=== PATIENT | male | born 1955 | race Caucasian/White ===

== ENCOUNTER 2017-07-13 13:16 | Observation (INO) | payer OTHER ==
[~2017-07-13] VITALS: Ht 182.9 cm; Wt 161.1 kg
[~2017-07-13 13:16] MED LIST: AMLODIPINE BES10 MG PO; CELEXA20 MG PO; COZAAR100 MG PO; FUROSEMIDE40 MG PO; GLIPIZIDE5 MG PO; GOOD SENSE ASPI81 M3 PO; KLOR-CON M1010 MEQ PO; METFORMIN HCL850 MG PO; OMEPRAZOLE40 M1 PO; OXYCONTIN60 MG PO; PRA40 PO; PROMETHAZINE12.5 M4 PO; RITALIN-SR20 MG PO; SEROQUEL50 M1 PO; TAMSULOSIN HYD0.4 M1 PO
--- NOTE | 2017-07-13 13:55 | NUR ---
PT AWAITING BED AVAILABILITY WITH FAMILY MEMBER IN ER [place], EKG COMPLETED IN TRIAGE, IN NO ACUTE DISTRESS
--- NOTE | 2017-07-13 15:19 | NUR ---
PT C/O HALLUCINATIONS ACCOMPANIED BY CHEST PAIN. PT'S STS HE'S BEEN "ACTING FUNNY, TALKING TO HIMSELF AND LOSING HIS GAZE OUT OF NO WHERE". PT SPEAKING IN CLEAR FULL SENTENCES. CM ATTACHED. O2 SATS 91% ROOM AIR. DR. FERNANDEZ AT BEDSIDE FOR MSE. ROOM AIR BLOOD GAS ORDERED PER DR. FERNANDEZ PRIOR TO ADMINISTERING O2 VIA NC. LUNG GRECO CLEAR UPON AUSCULTATION. CALL LIGHT W/IN REACH. COMFORT MEASURES IMPLEMENTED. WILL CONTINUE TO MONITOR.
--- NOTE | 2017-07-13 15:40 | NUR ---
PT ATTEMPTING TO URINATE IN URINAL FOR SAMPLE. PT REPORTS DIFFICULTY AT THIS MOMENT.
[2017-07-13 15:43] LABS: CALCIUM 9.1 mg/dL (8.5-10.1); CARBON DIOXIDE 28.8 mmol/L (21-32); CHLORIDE SERUM 100 mmol/L (98-107); CREATININE SERUM 1.3 mg/dL (0.7-1.3); GFR1 59 mL/min; GLUCOSE SERUM 122 mg/dL (74-106); POTASSIUM SERUM 5.1 mmol/L (3.5-5.1); SODIUM SERUM 136 mmol/L (136-145)
[2017-07-13 15:46] LABS: BASOPHIL % 0.4 % (0-2); PLATELET COUNT 283 x10^3mcL (130-400)
[2017-07-13 15:47] LABS: RED CELL DISTRIBUTION WIDTH 17.7 % (11.5-14.5)
[2017-07-13 15:55] LABS: ALBUMIN 3.5 g/dL (3.4-5.0); ALKALINE PHOSPHATASE 132 U/L (46-116); ALT/SGPT 35 U/L (16-63); AST/SGOT 22 U/L (15-37); BILIRUBIN TOTAL 0.27 mg/dL (0.20-1.00); CHOLESTEROL 166 mg/dL (<200); LIPASE 145 IU/L (73-393); MAGNESIUM 1.9 mg/dL (1.8-2.4); T4(THYROXINE) 5.3 ug/dL (4.7-13.3)
[2017-07-13 15:58] LABS: AMYLASE 19 U/L (25-115); HDL CHOLESTEROL 30 mg/dL (40-60)
[2017-07-13 16:24] LABS: microscopic required? NO
--- NOTE | 2017-07-13 16:28 | NUR ---
ATTEMPTED 2 IV SITES UNSUCCESSFUL RN VITO WILL ATTEMPT
[2017-07-13 16:31] LABS: UA SPECIFIC GRAVITY 1.025 (1.005-1.035); urine erythrocyte NEGATIVE (NEGATIVE)
[2017-07-13 16:38] LABS: AMPHETAMINE QUAL UR NONE DETECTED (NEG <=1000)
--- NOTE | 2017-07-13 17:37 | NUR ---
REPORT GIVEN TO GINGER NEWMAN FOR CONTINUATION OF CARE PRIMARY RN.
[2017-07-13 17:57] VITALS: BP 136/60
[2017-07-13 18:08] VITALS: BP 138/60
--- NOTE | 2017-07-13 18:24 | NUR ---
RECEIVED PATIENT FROM ED VIA GUERNEY, PATIENT ALERT AND ORIENTED SPOUSE AT BEDSIDE, SPOUSE STATES HAS MOMENTS OF HALLUCINATIONS, TELE # 27 SR, IV ACCESS TO RAC WNL, C/O PAIN TO NECK AND WILL MEDICATE ORDERED, ORIENTED PATIENT TO ROOM AND SURROUNDINGS, BED IN LOW POSITION, BED RAILS UP X 2, CALL LIGHT WITHIN REACH, WILL ENDORSE CARE TO PRIMARY NURSE FARRUKH MILES
[2017-07-13] MEDS ORDERED: OXYC PO (21:01)
[2017-07-13] MEDS ORDERED: COREG25 M1 PO (21:08)
[2017-07-13] MEDS ORDERED: LEVOTHYROXIN0.075 M2 PO (21:10)
[2017-07-13] MEDS ORDERED: CARAFATE1 GM PO (21:11)
[2017-07-13] MEDS ORDERED: ALBUTEROL SULFAT0.51 IH (21:12)
[2017-07-13 21:51] VITALS: BP 129/51
--- NOTE | 2017-07-13 22:45 | NUR ---
Awake and verbally responsive. No resp.distress noted on room air. Ambulating in the room. All due meds given and taken well. Noted abd'l.wound with erythema. No drainage noted. Will cont.to monitor. Call light within reach.
[2017-07-13] MEDS ORDERED: DIOVAN HCT1 TA3 PO (22:58)
[2017-07-14 01:29] VITALS: BP 128/52
[2017-07-14 03:58] LABS: PLATELET COUNT 221 x10^3mcL (130-400)
--- NOTE | 2017-07-14 04:08 | NUR ---
Afebrile. No significant change in condition noted. No hallucination observed. Pain controlled. In no apparent distress.
[2017-07-14 04:11] LABS: BASOPHIL % 2.1 % (0-2); RED CELL DISTRIBUTION WIDTH 17.8 % (11.5-14.5)
[2017-07-14 04:19] LABS: CALCIUM 8.9 mg/dL (8.5-10.1); CARBON DIOXIDE 30.1 mmol/L (21-32); CHLORIDE SERUM 102 mmol/L (98-107); CHOLESTEROL 161 mg/dL (<200); CHOLESTEROL/HDL RATIO 5.2; CREATININE SERUM 1.1 mg/dL (0.7-1.3); GFR1 > 60 mL/min; GLUCOSE SERUM 88 mg/dL (74-106); HDL CHOLESTEROL 31 mg/dL (40-60); MAGNESIUM 1.6 mg/dL (1.8-2.4); PHOSPHOROUS 3.2 mg/dL (2.5-4.9); POTASSIUM SERUM 4.2 mmol/L (3.5-5.1); SODIUM SERUM 140 mmol/L (136-145); TRIGLYCERIDES 110 mg/dL (<150)
[2017-07-14 06:18] VITALS: BP 105/57
--- NOTE | 2017-07-14 08:00 | NUR ---
AWAKE AND ALERT TO PERSON, , PLACE AND TIME. SPEECH CLEAR. DENIES HALLUCINATONS. TEMP 98.8. TELE #27 SINUS RHYTHM RATE 79. DENIES CHEST DISCOMFORT. RESP 18 EVEN. BREATH SOUNDS CLEAR. PULSE OX 96% ON RA. ABD ROUNDED PT OBESE. LBM=8-15-17. SCABBED AREA TO ABD JUST ABOVE NAVAL. STATES "HAS HAD A WOUND THERE FOR LAST 30 YEARS. THE SCAB COMES OFF AND IT BLEEDS SOMETIMES." CANDY. VOIDING QS. NO PITTING EDEMA. PULSES PRESENT. SCD IN PLACE. IV PATENT LEFT WRIST INFUSING NORMAL SALINE 100CC/HR. SIDE RAILS UP X2. REPORTS "NECK AND SHOULDE PAIN 05/08. MY OXYCONTIN SCHEDULE IS 60MG AM AND NIGHT AND AT NOON 40MG. REFUSES RITALIN "I AM NOT MOVING AROUND LIKE NORMAL." CALL LIGHT IN REACH.
--- NOTE | 2017-07-14 08:55 | NUR ---
DR HOYOS AND MEDICAL TEAM IN ON ROUNDS. CHARGE AND PRIMARY NURSE PRESENT. REVIEWED PT STATUS, PAIN MANAGEMENT SCHEDULE. PT STATUS CHANGED TO OBSERVATION. FOR POSSIBLE DISCHARGE HOME THIS AFTERNOON. PT VERBALIZED UNDERSTANDING.
[2017-07-14 10:16] VITALS: BP 127/74
--- NOTE | 2017-07-14 11:45 | NUR ---
CRC=[id number]. NO RISS COVERAGE NEEDED. ORAL OXYCONTIN 40MG PO GIVEN ORDERED. HERE THIS AM.
--- NOTE | 2017-07-14 14:43 | NUR ---
ECHO NOT DONE. PT REFUSED, STATES HE SEES DR LOZANO AND HAS REGULAR ECHOS DONE AT HIS OFFICE. RESIDENT AND NURSE NOTIFIED.
[2017-07-14 14:44] VITALS: BP 141/44
[2017-07-14 15:27] VITALS: BP 127/44
--- NOTE | 2017-07-14 15:30 | NUR ---
DISCHARGE INFORMATION REVIEWED WITH PT AND . MEDS REVIEWED. VERBALIZED UNDERSTANDING. DR SOLIS SET UP FOR HOSPICE NURSE TO CALL PT AT HOME TOMORRORW. PT STATES "PREFERS NOT TO HAVE NURSE COME EVERYDAY, THEY WILL CALL TOMORROW." TELE REMOVED AND RETURNED TO TELE UNIT. AWAITING DR LOVELL TO SEE PT.
[2017-07-14] MEDS ORDERED: GLIPIZIDE2.5 M1 (15:39)
--- NOTE | 2017-07-14 17:00 | NUR ---
SEEN BY DR LOVELL. IV REMOVED CATH TIP INTACT. PT DC TO DC NURSES OFFICE FOR EXIT INTERVIEW. PT UPSET HAD TO WAIT FOR NURSE TO REMOVE SALINE LOCK. DTR WITH PT.
== END 2017-07-14 16:57 | disposition hospice, home (50) | DRG 896 ==
LOC: ED 13:16 → DU 17:05
PROVIDERS: Emergency Medicine; ADMIT Family Medicine
DX: F11.251 Opioid dependence with opioid-induced psychotic disorder with hallucinations (principal); G92 Toxic encephalopathy; N17.0 Acute kidney failure with tubular necrosis; D68.69 Other thrombophilia; Z68.42 Body mass index [BMI] 45.0-49.9, adult; T40.2X5A Adverse effect of other opioids, initial encounter; G89.4 Chronic pain syndrome; E11.65 Type 2 diabetes mellitus with hyperglycemia; E11.59 Type 2 diabetes mellitus with other circulatory complications; M94.0 Chondrocostal junction syndrome [Tietze]; J44.9 Chronic obstructive pulmonary disease, unspecified; D53.9 Nutritional anemia, unspecified; E78.5 Hyperlipidemia, unspecified; E03.9 Hypothyroidism, unspecified; F90.9 Attention-deficit hyperactivity disorder, unspecified type; K21.9 Gastro-esophageal reflux disease without esophagitis; N40.0 Benign prostatic hyperplasia without lower urinary tract symptoms; E66.01 Morbid (severe) obesity due to excess calories; Z87.891 Personal history of nicotine dependence; Z98.1 Arthrodesis status; Z79.82 Long term (current) use of aspirin; Z79.84 Long term (current) use of oral hypoglycemic drugs; Y92.009 Unspecified place in unspecified non-institutional (private) residence as the place of occurrence of the external cause
CPT/HCPCS: 36600; 83880; G0378; G0480; J3475; J7030; Q0092

== ENCOUNTER 2020-01-19 13:28 | Observation (INO) | payer OTHER ==
[~2020-01-19] VITALS: Ht 182.9 cm; Wt 162.6 kg
[~2020-01-19 13:28] MED LIST changes: +ALBUTEROL SULFAT0.51 IH; +CARAFATE1 GM PO; +COREG25 M1 PO; +DIOVAN HCT1 TA3 PO; +GLIPIZIDE2.5 M1; +LEVOTHYROXIN0.075 M2 PO; +OXYC PO
[2020-01-19 13:34] VITALS: Ht 182.9 cm; Wt 162.6 kg
[2020-01-19 14:19] LABS: PLATELET COUNT 229 x10^3mcL (130-400)
[2020-01-19 14:20] LABS: BASOPHIL % 0 % (0-2); RED CELL DISTRIBUTION WIDTH 18.9 % (11.5-14.5)
[2020-01-19 15:52] LABS: CALCIUM 8.9 mg/dL (8.5-10.1); CARBON DIOXIDE 30.2 mmol/L (21-32); CHLORIDE SERUM 100 mmol/L (98-107); GFR1 > 60 mL/min; GLUCOSE SERUM 101 mg/dL (74-106); POTASSIUM SERUM 4.3 mmol/L (3.5-5.1); SODIUM SERUM 136 mmol/L (136-145)
[2020-01-19 15:57] LABS: ALKALINE PHOSPHATASE 114 U/L (46-116); ALT/SGPT 29 U/L (16-63); AST/SGOT 17 U/L (15-37); BILIRUBIN TOTAL 0.3 mg/dL (0.20-1.00); TOTAL PROTEIN, SERUM 7.5 g/dL (6.4-8.2)
[2020-01-19 16:08] LABS: ALBUMIN 3.3 g/dL (3.4-5.0)
[2020-01-19] MEDS ORDERED: ACID REDUCER20 MG PO (19:05)
[2020-01-19] MEDS ORDERED: GLIPIZIDE XL5 M2 PO ×2 (19:06→20:40)
[2020-01-19] MEDS ORDERED: METHADONE HC10 MG/M3 PO (19:09)
[2020-01-19] MEDS ORDERED: SIMVASTATIN5 M2 PO ×2 (19:10→20:43)
[2020-01-19 20:01] VITALS: BP 145/71
[2020-01-19] MEDS ORDERED: TAMSULOSIN HCL0.4 MG PO (20:39)
[2020-01-19] MEDS ORDERED: RITALIN LA30 MG PO (20:39)
[2020-01-19] MEDS ORDERED: OMEPRAZOLE MAGN20 M1 PO (20:39)
[2020-01-19] MEDS ORDERED: METFORMIN HCL1000 M2 PO (20:40)
[2020-01-19] MEDS ORDERED: CORE25 PO (20:40)
[2020-01-19] MEDS ORDERED: OLMESARTAN MEDO40 MG PO (20:41)
[2020-01-19] MEDS ORDERED: LASIX40 MG PO (20:41)
[2020-01-19] MEDS ORDERED: KLOR-CON 1010 MEQ PO (20:41)
[2020-01-19] MEDS ORDERED: ASPIRIN ADULT L81 M3 PO (20:41)
[2020-01-19] MEDS ORDERED: METHADONE HYDROC5 MG PO (20:42)
[2020-01-19] MEDS ORDERED: LEVO-T75 MCG PO (20:42)
[2020-01-19] MEDS ORDERED: DOLOPHINE HCL5 MG PO (20:42)
[2020-01-19] MEDS ORDERED: MEDI-FIRST IBU200 MG PO (20:43)
[2020-01-20 05:34] VITALS: BP 126/63
[2020-01-20 07:31] VITALS: BP 139/71
[2020-01-20 12:08] VITALS: BP 132/56
[2020-01-20 15:40] VITALS: BP 143/63
[2020-01-20 16:13] LABS: T3 TOTAL 0.82 ng/mL
[2020-01-20 16:18] LABS: FREE T4 1.25 ng/dL (0.76-1.46); FREE THYROXINE INDEX 2.8 ug/dL (1.4-4.5); T4(THYROXINE) 7.1 ug/dL (4.7-13.3)
[2020-01-20 16:52] VITALS: BP 143/63
== END 2020-01-20 17:31 | disposition home or self-care (01) ==
LOC: ED 13:28 → DU 18:26
PROVIDERS: Emergency Medicine; ADMIT Internal Medicine Pulmonary Disease
DX: R07.89 Other chest pain (principal); R53.1 Weakness; J44.9 Chronic obstructive pulmonary disease, unspecified; I11.0 Hypertensive heart disease with heart failure; I50.9 Heart failure, unspecified; E11.42 Type 2 diabetes mellitus with diabetic polyneuropathy; N40.0 Benign prostatic hyperplasia without lower urinary tract symptoms; M19.90 Unspecified osteoarthritis, unspecified site; G89.29 Other chronic pain
CPT/HCPCS: 82962; 83880; 84439; 85378; G0378; J1650; J2270; J2405; Q0092